=== PATIENT | male | born 1990 | race Caucasian/White ===

== ENCOUNTER 2018-03-01 04:35 | Emergency (ER) | payer SELFPAY ==
[~2018-03-01] VITALS: Ht 185.4 cm; Wt 108.9 kg
[2018-03-01 04:37] VITALS: BP 140/78
[2018-03-01] MEDS ORDERED: KETOROLAC 30 MG/ML VIAL IM ONE (04:50)
[2018-03-01] MEDS ORDERED: ONDANSETRON 4 MG ODT PO ONE (04:50)
[2018-03-01] MEDS ORDERED: HYDROcodone/APAP 5/325 MG 1 TAB TAB PO ONE (06:00)
[2018-03-01 06:14] VITALS: BP 135/75
== END 2018-03-01 06:13 | disposition home or self-care (01) ==
LOC: MED 04:35
DX: N20.1 Calculus of ureter (principal)
CPT/HCPCS: 74176; 96372; 99284; J1885; S0119

== ENCOUNTER 2022-06-04 09:58 | Emergency (ER) | payer OTHER ==
[~2022-06-04] VITALS: Ht 177.8 cm; Wt 81.6 kg
[2022-06-04 09:59] VITALS: BP 155/89
--- NOTE | 2022-06-04 10:12 | NUR ---
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 PT STATES THAT HE "DOES BITE HIS NAILS" NKA PMH: DENIES
--- NOTE | 2022-06-04 10:12 | NUR ---
DR DOZIER AT BEDSIDE
--- NOTE | 2022-06-04 10:13 | NUR ---
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 PT STATES THAT HE "DOES BITE HIS NAILS" NKA PMH: DENIES
[2022-06-04] MEDS ORDERED: ACETAMINOPHEN EXTRA STRENGTH 500 MG TAB PO ONE (10:15)
[2022-06-04] MEDS ORDERED: LIDOCAINE MPF 1% 10 MG/ML VIAL INJ ONE (10:15)
[2022-06-04] MEDS ORDERED: cephALEXin 500 MG CAP PO ONE (10:15)
--- NOTE | 2022-06-04 10:24 | NUR ---
X-Ray at bedside.
--- NOTE | 2022-06-04 10:30 | NUR ---
pt's wound soaked in normal saline and betadine
--- NOTE | 2022-06-04 10:53 | NUR ---
ERMD AT BEDSIDE FOR PROCEDURE
[2022-06-04] MEDS ORDERED: CEPH-588 PO (10:59)
[2022-06-04] MEDS ORDERED: BACI-416 TP (11:01)
--- NOTE | 2022-06-04 11:01 | NUR ---
PT'S FINGER WRAPPED WITH NON-ADHERENT GAUZE PAD, 4X4 GUAZE PAD AND TAPE
--- NOTE | 2022-06-04 11:10 | NUR ---
Patient discharged with v/s stable. Written and verbal after care instructions ABOUT INCISION AND DRAINAGE AND FINGERTIP INFECTION given and explained. Patient alert, oriented and verbalized understanding of instructions. Ambulatory with steady gait. All questions addressed prior to discharge. ID band removed. Patient advised to follow up with PMD. Rx of BACITRACIN AND KEFLEX given. Patient educated on indication of medication including possible reaction and side effects. Opportunity to ask questions provided and answered.
== END 2022-06-04 11:10 | disposition home or self-care (01) ==
LOC: MED 09:58
DX: L03.011 Cellulitis of right finger (principal); I10 Essential (primary) hypertension; F17.210 Nicotine dependence, cigarettes, uncomplicated; F12.90 Cannabis use, unspecified, uncomplicated; Z79.899 Other long term (current) drug therapy
CPT/HCPCS: 26011; 73140; 99284; J2001; Q0092

== ENCOUNTER 2022-06-22 23:56 | Emergency (ER) | payer OTHER ==
[~2022-06-22 23:56] MED LIST: BACI-416 TP; CEPH-588 PO
--- NOTE | 2022-06-23 00:10 | NUR ---
PATIENT CALL TO TRIAGE NO RESPONSE PATIENT LEFT WITHOUT BEING SEEN BY DR. FINK. NO FURTHER CARE PROVIDED FOR PATIENT.
--- NOTE | 2022-06-23 00:15 | NUR ---
CALLED FOR THE SECOND TIME NO RESPONSE
--- NOTE | 2022-06-23 00:25 | NUR ---
CALLED FOR THE THIRD TIME , NO RESPONSE
== END 2022-06-23 00:10 | disposition left against medical advice (07) ==
LOC: MED 23:56
DX: R06.02 Shortness of breath (principal); Z53.21 Procedure and treatment not carried out due to patient leaving prior to being seen by health care provider